=== PATIENT | male | born 1980 | race African-American/Black ===

== ENCOUNTER 2025-02-02 19:02 | Emergency (ER) | payer OTHER ==
[~2025-02-02] VITALS: Ht 182.9 cm; Wt 98.6 kg
[2025-02-02 21:16] VITALS: BP 131/93; PULSE 78; RESP 19; TEMP 98.3; O2SAT 97
[2025-02-02] MEDS ORDERED: RALT400T PO (21:34)
[2025-02-02] MEDS ORDERED: EMTRTAB7 PO (21:34)
[2025-02-02] MEDS ORDERED: ERY05OO OP (21:35)
--- NOTE | 2025-02-02 21:36 | ED.PDOC ---
History of Present Illness EXP HPI Comments 44 year old male presents to ER with complaints of body fluid exposure x 1 day. Patient states he was placing empty "blood lines" into a biohazard container while wearing protective PPE when "fluid" from the biohazard trash splashed up and went into left eye at 4:25 p.m. prior to arrival to ER. States he i mmediately flushed his left eye out with water several times. Denies any vision changes, eye drainage, photophobia, eye pain, use of contacts, foreign body sensation or any further symptoms/complaints Chief Complaint: Post Exposure Time Seen by MD: 19:27 Primary Care Provider: UNKNOWN Reviewed Notes: Nurses Notes, Medications, Allergies Allergies: Coded Allergies: NO KNOWN ALLERGIES (Unverified , 02/02/25) Home Meds Active Scripts Erythromycin (Erythromycin) 5 Mg/Gm Oin, 1 MG OP 6XD for 7 Days, #1 OIN 0 Refills Prov:SCOTT RALPH 02/02/25 Emtricitabine-Tenofovir Disopr (Truvada) Tab, 1 TAB PO DAILY for 28 Days, #28 TAB 0 Refills Prov:SCOTT RALPH 02/02/25 Raltegravir Potassium (Isentress) 400 Mg Tab, 400 MG PO BID for 28 Days, #56 TAB 0 Refills Prov:SCOTT RALPH 02/02/25 Information Source: Patient Mode of Arrival: Ambulatory Past Medical History PAST MEDICAL HISTORY: Asthma Surgical History: Denies all surgeries Family History Family History: Unknown Social History Smoker: Non-Smoker Alcohol: Denies ETOH Use Drugs: Denies Drug Use Lives In: Home Constitutional: denies: chills, diaphoresis, fatigue, fever, malaise, sweats, weakness, others EENTM: reports: others (As stated in HPI) Respiratory: denies: cough, hemoptysis, orthopnea, SOB at rest, shortness of breath, SOB with excertion, stridor, wheezing, others Cardiovascular: denies: chest pain, dizzy spells, diaphoresis, Dyspnea on exertion, edema, irregular heart beat, left arm pain, lightheadedness, palpitations, PND, syncope, others Gastrointestinal: denies: abdomen distended, abdominal pain, blood streaked bowels, constipated, diarrhea, dysphagia, difficulty swallowing, hematemesis, melena, nausea, poor appetite, poor fluid intake, rectal bleeding, rectal pain, vomiting, others Genitourinary: denies: burning, dysuria, flank pain, frequency, hematuria, incontinence, penile discharge, penile sore, pain, testicle pain, testicle swelling, urgency, others Neurological: denies: dizziness, fainting, headache, left sided numbness, left sided weakness, numbness, paresthesia, pre-existing deficit, right sided numbness, right sided weakness, seizure, speech problems, tingling, tremors, weakness, others Musculoskeletal: denies: back pain, gout, joint pain, joint swelling, muscle pain, muscle stiffness, neck pain, others Integumetry: denies: bruises, change in color, change in hair/nails, dryness, laceration, lesions, lumps, rash, wounds, others Allergic/Immunocompromised: denies: Difficulty Healing, Frequent Infections, Hives, Itching, others Hematologic/Lymphatic: denies: anemia, blood clots, easy bleeding, easy bruising, swollen glands, others Endocrine: denies: excessive hunger, excessive sweating, excessive thirst, excessive urination, flushing, intolerance to cold, intolerance to heat, unexplained weight gain, unexplained weight loss, others Psychiatric: denies: anxiety, bipolar disorder, depression, hopeless, panic disorder, schizophrenia, sleepless, suicidal, others Physical Exam General Appearance: No Apparent Distress HEENT: PERRL/EOMI, Pharynx Normal, TMs Normal, Other (Mild subconjunctival injection noted to left eye, no drainage or appreciable foreign body noted) Neck: Full Range of Motion, Non-Tender, Normal Respiratory: Chest Non-Tender, Lungs Clear, No Accessory Muscle Use, No Respiratory Distress, Normal Breath Sounds Cardiovascular: No Murmur, No Gallop, Regular Rate/Rhythm Breast Exam: Deferred Gastrointestinal: NOT DONE Genitalia: Deferred Pelvic: Deferred Rectal: Deferred Extremities: Normal capillary refill, Normal range of motion 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 Was a procedure done?: No Sedation Sedation?: No Differential Diagnosis (EXP) Differential Diagnosis: Needle stick exposure, Other (Corneal abrasion, retained foreign body) X-Ray, Labs, Meds, VS Vital Signs Date Time Temp Pulse Resp B/P (MAP) Pulse Ox O2 Delivery O2 Flow Rate FiO2 02/02/25 21:16 78 19 97 Room Air 02/02/25 21:16 98.3 78 19 131/93 (106) 97 98.3 02/02/25 19:12 98.1 87 18 124/87 96 98.1 Lab Test 02/02/25 21:21 Range/Units Hepatitis B Surface Antigen Pending Hepatitis B Surface Antibody Pending Hepatitis C Antibody Pending HIV (1&2) Antibody Pending Post exposure labs ordered Workman's comp paperwork filled out Advised to follow up with PCP and workman's comp PCP in 1-2 days Patient verbalized understanding and agreeable with current plan of care Advised to return to ER immediately if symptoms worsen Time of 1ST Reevaluation: 21:14 Reevaluation 1ST: N/A Patient Education/Counseling: Diagnosis, Treatment, Prognosis, Need For Follow Up Family Education/Counseling: No Family Present Departure 1 Departure Time of Disposition: 21:31 Impression: Primary Impression: Exposure to body fluid Additional Impression: Foreign body in eyeball, left Qualified Codes: S05.52XA - Penetrating wound with foreign body of left eyeball, initial encounter Disposition: HOME / SELF CARE / HOMELESS Condition: Stable e-Prescriptions Erythromycin (Erythromycin) 5 Mg/Gm Oin 1 MG OP 6XD for 7 Days, #1 OIN 0 Refills Prov: SCOTT RALPH 02/02/25 Emtricitabine-Tenofovir Disopr (Truvada) Tab 1 TAB PO DAILY for 28 Days, #28 TAB 0 Refills Prov: SCOTT RALPH 02/02/25 Raltegravir Potassium (Isentress) 400 Mg Tab 400 MG PO BID for 28 Days, #56 TAB 0 Refills Prov: SCOTT RALPH 02/02/25 Discharged With: Self Critical Care Note Critical Care Time?: No Stability Stability form required: No Heart Score Heart Score: Heart Score Response (Comments) Value History N/A 0 EKG N/A 0 Age N/A 0 Risk Factors N/A 0 Troponin N/A 0 Total 0 SCOTT RALPH Feb 02, 2025 21:36
[2025-02-02] MEDS: FLUORESCEIN SOD OPTH TEST STRIP LEFTEYE ONE (21:50)
[2025-02-02] MEDS: TETRACAINE HCL 0.5% OPTH(EYE) SOLN 4ML LEFTEYE ONE (21:50)
[2025-02-04 09:52] LABS: Hepatitis B Surface Antigen Negative (Negative)
== END 2025-02-02 21:50 | disposition home or self-care (01) ==
LOC: ER 19:02
DX: T15.82XA Foreign body in other and multiple parts of external eye, left eye, initial encounter (principal); J45.909 Unspecified asthma, uncomplicated; Z77.21 Contact with and (suspected) exposure to potentially hazardous body fluids; Z79.899 Other long term (current) drug therapy; X58.XXXA Exposure to other specified factors, initial encounter; Y93.89 Activity, other specified; Y92.89 Other specified places as the place of occurrence of the external cause; Y99.8 Other external cause status
CPT/HCPCS: 36415; 86703; 86706; 86803; 87340